=== PATIENT | female | born 1975 | race Two or more races ===

== ENCOUNTER 2022-09-04 14:22 | Emergency (ER) | payer OTHER ==
[~2022-09-04] VITALS: Ht 157.5 cm; Wt 65.3 kg
[2022-09-04] MEDS ORDERED: LEVOTHYROXINE25 MC2 (14:29)
== END 2022-09-04 20:31 | disposition home or self-care (01) ==
LOC: ER 14:22
DX: N83.209 Unspecified ovarian cyst, unspecified side (principal)